=== PATIENT | male | born 1975 | race Hispanic/Latino ===

== ENCOUNTER 2021-09-12 14:07 | Emergency (ER) | payer SELFPAY ==
[~2021-09-12] VITALS: Ht 177.8 cm; Wt 74.8 kg
[2021-09-12] MEDS ORDERED: DIAZEPAM 5 MG TABLET PO ONE (15:00)
[2021-09-12] MEDS ORDERED: KETOROLAC 60 MG VIAL (30MG/ML) IM ONE (15:00)
[2021-09-12] MEDS ORDERED: HYDROCODONE/ACETAMINOPHEN 5/325 MG TAB PO ONE (15:00)
[2021-09-12] MEDS ORDERED: NAPR-1180 PO (15:40)
[2021-09-12] MEDS ORDERED: CYCL10TA16 PO (15:40)
[2021-09-12 15:46] VITALS: BP 144/92
== END 2021-09-12 15:59 | disposition home or self-care (01) ==
LOC: EDH 14:07 → EEVIPCON 14:07 → EDH 15:59
DX: S39.012A Strain of muscle, fascia and tendon of lower back, initial encounter (principal); X58.XXXA Exposure to other specified factors, initial encounter; Y93.89 Activity, other specified; Y92.89 Other specified places as the place of occurrence of the external cause; Y99.8 Other external cause status
CPT/HCPCS: 72131; 96372; 99284; J1885